=== PATIENT | female | born 1935 | race Caucasian/White ===

== ENCOUNTER 2018-07-08 15:07 | Emergency (ER) | payer MEDICARE ==
[~2018-07-08] VITALS: Ht 165.1 cm; Wt 83.6 kg
[~2018-07-08 15:07] MED LIST: ASPI1TAB15 PO; ATEN25TA PO; AVEL1TAB3 PO; CINN500C9 PO; CITA20TA4 PO; CO Q400C2 PO; COCO1000 PO; DULE100A INH; HYDR25TAB PO; MAGNCAP2 PO; METF500T13 PO; NYST50SS SS; OMEP20CA3 PO; PRAV40TA2 PO; PRED10TA PO; PRIL20TA2 PO; QUIN1TAB4 PO; SING10TA32 PO; VITA10002 PO; VITA1TAB23 PO; VITA200015 PO; XANA0.5T PO
[2018-07-08] MEDS ORDERED: NAPR-50 PO (16:13)
[2018-07-08] MEDS ORDERED: SOMA350T PO (16:23)
[2018-07-08 16:33] VITALS: BP 121/57
--- NOTE | 2018-07-08 18:04 | REP ---
CT LUMBAR SPINE WITHOUT CONTRAST: HISTORY: Fall. There is no disc bulge or herniation at the L1-2 level. The L1 nerves exit the neural foramina without compression. A diffuse disc bulge is present at the L2-3 level. There is hypertrophy of the ligamenta flava and posterior articulating facets. These findings produce mild central canal stenosis. The L2 nerves exit the neural foramina without compression. A diffuse disc bulge is present at the L3-4 level. There is hypertrophy of the ligamenta flava and posterior articulating facets. These findings produce moderate central canal stenosis. The L3 nerves exit the neural foramina without compression. A diffuse disc bulge is present at the L4-5 level. There is hypertrophy of the ligamenta flava and posterior articulating facets. These findings produce moderate central canal stenosis. The L4 nerves exit the neural foramina without compression. A diffuse disc bulge is present at the L5-S1 level. This abuts the thecal sac. There is hypertrophy of the posterior articulating facets. There are 3 mm of grade 1 spondylolisthesis of L5 on S1. This is associated with L5 Pars defects. The L5 nerves exit the neural foramina without compression. The L3-4 and L4-5 intervertebral discs are decreased in height consistent with disc degeneration There is an old compression fracture of the L4 vertebral body with minimal height loss. IMPRESSION:1. Mild central canal stenosis at the L2-3 level secondary to disc bulge, ligamentous and facet hypertrophy. 2. Moderate central canal stenosis at the L3-4 and L4-5 levels secondary to disc bulge, ligamentous and facet hypertrophy . 3. Diffuse disc bulge at the L5-S1 level. This abuts the thecal sac. There is grade 1 spondylolisthesis of L5 on S1 with associated L5 pars defects. 4. Old L4 compression fracture with minimal height loss. Electronically Signed by Abelardo Gaytan MD 07/11/2018 08:25 A
== END 2018-07-08 16:48 | disposition home or self-care (01) ==
LOC: M ED 15:07
DX: S39.012A Strain of muscle, fascia and tendon of lower back, initial encounter (principal); S30.0XXA Contusion of lower back and pelvis, initial encounter; W10.8XXA Fall (on) (from) other stairs and steps, initial encounter; Y92.89 Other specified places as the place of occurrence of the external cause; Y99.0 Civilian activity done for income or pay; E11.9 Type 2 diabetes mellitus without complications; I10 Essential (primary) hypertension; K21.9 Gastro-esophageal reflux disease without esophagitis; E78.00 Pure hypercholesterolemia, unspecified; I25.10 Atherosclerotic heart disease of native coronary artery without angina pectoris; Z79.899 Other long term (current) drug therapy; Z79.84 Long term (current) use of oral hypoglycemic drugs; Z79.82 Long term (current) use of aspirin; Z88.1 Allergy status to other antibiotic agents; Z88.2 Allergy status to sulfonamides; Z87.891 Personal history of nicotine dependence

== ENCOUNTER 2019-06-13 10:21 | Inpatient (IN) | payer MEDICARE ==
[~2019-06-13] VITALS: Ht 167.6 cm; Wt 83.9 kg
[~2019-06-13 10:21] MED LIST changes: -CITA20TA4 PO; +CITA20TA6 PO; +CYAN100049 PO; +HYDR-2541 PO; -HYDR25TAB PO; +NAPR-837 PO; +OMEP-172 PO; -OMEP20CA3 PO; +PRED-351 PO; -PRED10TA PO; +SOMA350T PO; -VITA10002 PO
[2019-06-13] MEDS ORDERED: ATOR1TAB21 PO (10:45)
[2019-06-13] MEDS ORDERED: NITR0.4S14 SL (10:45)
--- NOTE | 2019-06-13 11:05 | REP ---
CHEST, SINGLE VIEW: Single view of the chest is performed and compared to a prior study of 01/04/2016. Cardiac silhouette is mildly prominent. There is no evidence of acute infiltrate. There is calcification and tortuosity of the thoracic aorta. The mediastinal silhouette is unchanged. IMPRESSION: No acute infiltrate. Electronically Signed by Shakeel Bartlett MD 06/13/2019 04:04 P
--- NOTE | 2019-06-13 11:07 | REP ---
LEFT HIP, TWO VIEWS: Two views of the left hip performed. There is a nondisplaced fracture of the basicervical region of the proximal left femur. There is no angulation or displacement. There are mild degenerative changes at the left hip joint. IMPRESSION: Nondisplaced basicervical fracture proximal left femur. Electronically Signed by Shakeel Bartlett MD 06/13/2019 04:05 P
[2019-06-13 11:13] LABS: BASO # 0.1 10^3/uL (0.0-0.2); BASO % 0.3 % (0.0-1.0); EOS # 0.1 10^3/uL (0.0-0.5); EOS % 0.8 % (0.0-3.0); HEMATOCRIT 45.2 % (36.0-47.0); HEMOGLOBIN 14.2 g/dl (12.0-15.5); LYMPH # 1.8 10^3/uL (1.5-5.0); LYMPH % 9.7 % (24.0-44.0); MEAN CORPUSCULAR HEMOGLOBIN 30.5 pg (27.0-33.0); MEAN CORPUSCULAR HGB CONC 31.4 g/dl (32.0-36.5); MONO # 0.8 10^3/uL (0.0-0.8); MONO % 4.3 % (0.0-5.0); NEUTROPHILS # 15.6 10^3/uL (1.5-8.5); NEUTROPHILS % 83.3 % (36.0-66.0); PLATELET COUNT, AUTOMATED 234 10^3/uL (150-450); RED BLOOD COUNT 4.66 10^6/uL (4.00-5.40); WHITE BLOOD COUNT 18.7 10^3/uL (4.0-10.0)
[2019-06-13 11:28] LABS: INR 0.99; PROTHROMBIN TIME 12.8 SECONDS (11.8-14.0)
[2019-06-13 11:39] LABS: ALBUMIN 3.7 GM/DL (3.2-5.2); BILIRUBIN,TOTAL 0.5 MG/DL (0.2-1.0); CALCIUM LEVEL 9.9 MG/DL (8.8-10.2); CREATININE FOR GFR 0.95 MG/DL (0.55-1.30); GLOMERULAR FILTRATION RATE 59.7 (>32); POTASSIUM SERUM 3.7 MEQ/L (3.5-5.1); TOTAL PROTEIN 7.2 GM/DL (6.4-8.2)
[2019-06-13] MEDS ORDERED: MORPHINE 2 MG/ML 1ML VIAL (J2270) IV PRN ×2 (11:45→13:15)
[2019-06-13] MEDS ORDERED: ONDANSETRON 4MG/2ML VIAL (J2405) IV ONE (11:45)
[2019-06-13] MEDS ORDERED: XANA0.5T PO (12:03)
[2019-06-13] MEDS ORDERED: MAGN400C2 PO (12:03)
[2019-06-13] MEDS ORDERED: CINN500C15 PO (12:03)
[2019-06-13] MEDS ORDERED: HYDR25TAB PO (12:03)
[2019-06-13] MEDS ORDERED: hydrALAZINE INJ 20 MG/ML VIAL IV STA (12:16)
--- NOTE | 2019-06-13 12:36 | REP ---
CT LEFT HIP: CT left hip performed in the axial plane. Sagittal and coronal reconstruction images are performed. There is a nondisplaced fracture of the basicervical portion of the left femoral neck. This is not displaced and not angulated. No other fracture or dislocation is seen. There is moderate narrowing of the hip joint itself with subchondral sclerosis and spurring. Electronically Signed by Shakeel Bartlett MD 06/13/2019 04:22 P
--- NOTE | 2019-06-13 12:38 | REP ---
LEFT FEMUR: AP and lateral views of left femur are performed. There is a basicervical fracture of the left femoral neck which is nondisplaced and not angulated. There are moderate degenerative changes at the left hip joint. No other fracture or dislocation is seen. Electronically Signed by Shakeel Bartlett MD 06/13/2019 04:22 P
--- NOTE | 2019-06-13 12:38 | REP ---
PELVIS, SINGLE VIEW: Single AP view of the pelvis is performed. There is a nondisplaced fracture of the basicervical portion of the left femoral neck. No other acute fracture or dislocation is seen of the visualized osseous structures. There are moderate degenerative changes of the hips bilaterally. Electronically Signed by Shakeel Bartlett MD 06/13/2019 04:22 P
[2019-06-13] MEDS ORDERED: ALPRAZolam 0.5 MG TAB PO PRN (12:45)
[2019-06-13] MEDS ORDERED: NITROGLYCERIN 0.4 MG SUBL TABLET SL PRN ×2 (12:45→13:15)
--- NOTE | 2019-06-13 13:06 | HPEPDOC ---
[facility] Medical History & Physical Date of Admission Jun 13, 2019 Date of Service: Jun 13, 2019 Attending Physician: VENKAT YANES MD History and Physical CHIEF COMPLAINT: Fall HISTORY OF PRESENT ILLNESS: 83-year-old female with past medical history of coronary artery disease status post stent 1, COPD, obstructive sleep apnea, diabetes mellitus, CHF and hypertension, presents after slipping and falling while attempting to get out of her car. Patient reports moderate to severe left hip pain, imaging in the ED is consistent with nondisplaced intertrochanteric proximal left femur fracture. ED has discussed the case with Dr. Santos from orthopedic surgery who plans on taking her to the OR later today. Patient has no other complaints at this time, denies any chest pain, short of breath, nausea, vomiting, abdominal pain or diarrhea. At baseline, patient is able to ambulate at least one city block without getting shortness of breath, reports no difficulty with climbing a flight of stairs. She does report a history of CHF, last echocardiogram was 2 years ago, was valid by lace machine operator 6 months ago, without cardiac complaints. Patient's cardiac stent was placed nearly 10 years ago, no history of [place], currently at baseline. 10 point review of system is negative except for above PAST MEDICAL HISTORY: 1. Diabetes mellitus. 2. Coronary artery disease. 3. CHF. 4. Diabetes mellitus. 5. COPD 6. Obstructive sleep apnea. 7. Hypertension PAST SURGICAL HISTORY: 1. Coronary stent placement. SOCIAL HISTORY: Ex-smoker, 1+ pack per day for over 30 years, quit in 1985. Denies alcohol use. Denies drug use FAMILY HISTORY: Mother with heart disease Father with colon cancer ALLERGIES: Please see below. HOME MEDICATIONS: Please see below. PHYSICAL EXAMINATION: VITAL SIGNS: Please see below. GENERAL: No distress HEENT: Normocephalic, atraumatic, moist mucous membranes NECK: Supple CARDIOVASCULAR EXAMINATION: S1, S2, no murmurs RESPIRATORY EXAMINATION: Clear to auscultation, no wheezing ABDOMINAL EXAMINATION: Soft, nontender, nondistended, positive bowel sounds EXTREMITIES: Range of motion limited due to pain, left hip with moderate tenderness to palpation SKIN: No rash NEUROLOGICAL EXAMINATION: Alert and oriented 3, no focal deficits PSYCHIATRIC EXAMINATION: Calm and cooperative LABORATORY DATA: See below. IMAGING: X-rays and CT scan consistent with nondisplaced intertrochanteric left femur fracture MICROBIOLOGY: Please see below. ASSESSMENT: 83-year-old female with an extensive medical history, presents to the emergency department with left femur fracture after sustaining a fall while attempting to get out of her car. PLAN: 1. Nondisplaced intertrochanteric proximal left femur fracture. Orthopedic evaluation pending, tentatively planned for later today. Revised cardiac risk index score of 1, patient is at moderate risk for complications from this moderate risk procedure. Discussed the risks and benefits along with possible complications with the patient and family at bedside, all questions answered. Patient is willing to accept this risk and wishes to undergo surgery at this time. We'll get post op EKG, NT proBNP pending, will trend troponins daily for 3 days postop. Pain control, bed rest for now, nothing by mouth, hold off on DVT prophylaxis until after surgery. 2. Coronary artery disease. Status post stent 1, stable, continue optimal medical management. 3. CHF. Stable, reportedly her last echocardiogram was 2 years ago, continue medical management. 4. COPD Stable, does not require home oxygen, continue home meds. 5. Obstructive sleep apnea. Continue CPAP with home settings. 6. Diabetes mellitus. Hold metformin, sliding scale insulin before meals and at bedtime. 7. Hypertension. Continue home meds DVT prophylaxis: Heparin subcutaneous GI prophylaxis: Home PPI Vital Signs Vital Signs Date Time Temp Pulse Resp B/P (MAP) Pulse Ox O2 Delivery O2 Flow Rate FiO2 06/13/19 12:30 70 165/73 (103) 97 Nasal Cannula 4.0 06/13/19 11:55 18 06/13/19 10:31 96.3 Laboratory Data Labs 24H Laboratory Tests 2 06/13/19 11:04: Immature Granulocyte % (Auto) 1.6, Neutrophils (%) (Auto) 83.3H, Lymphocytes (%) (Auto) 9.7L, Monocytes (%) (Auto) 4.3, Eosinophils (%) (Auto) 0.8, Basophils (%) (Auto) 0.3, Neutrophils # (Auto) 15.6H, Lymphocytes # (Auto) 1.8, Monocytes # (Auto) 0.8, Eosinophils # (Auto) 0.1, Basophils # (Auto) 0.1, Nucleated Red Blood Cells % (auto) 0.0, Prothrombin Time 12.8, Prothromb Time International Ratio 0.99, Anion Gap 9, Glomerular Filtration Rate 59.7, Calcium Level 9.9, Total Bilirubin 0.5, Aspartate Amino Transf (AST/SGOT) 22, Alanine Aminotransferase (ALT/SGPT) 24, Alkaline Phosphatase 83, Total Protein 7.2, Albumin 3.7, Albumin/Globulin Ratio 1.06 CBC/BMP Laboratory Tests 06/13/19 11:04 Home Medications Scheduled Ascorbic Acid (Vitamin C) 250 Mg Tab, 250 MG PO DAILY Aspirin (Aspirin EC) 81 Mg Tab, 81 MG PO DAILY Atorvastatin Calcium (Atorvastatin Calcium) 20 Mg Tablet, 20 MG PO QHS Cholecalciferol (Vitamin D3) (Vitamin D3) 2,000 Unit Tab, 2,000 UNIT PO DAILY Cinnamon Bark (Cinnamon) 500 Mg Capsule, 500 MG PO DAILY Citalopram Hydrobromide (Citalopram HBr) 20 Mg Tab, 20 MG PO DAILY Cyanocobalamin (Vitamin B-12) (Vitamin B-12) 1,000 Mcg Tab, 1,000 MCG PO DAILY Hydrochlorothiazide (Hydrochlorothiazide) 25 Mg Tablet, 25 MG PO DAILY Magnesium Oxide (Magnesium) 400 Mg Capsule, 400 MG PO DAILY Metformin HCl (Metformin HCl) 500 Mg Tab, 500 MG PO BID Mometasone/Formoterol (Dulera 100 Mcg/5 Mcg Inhaler) 1 Aer Aer, 1 PUFF INH BID Montelukast Sodium (Singulair) 10 Mg Tab, 10 MG PO QHS Omeprazole (Omeprazole) 20 Mg Cap, 20 MG PO DAILY Quinapril Hcl (Quinapril HCl) 40 Mg Tab, 40 MG PO DAILY Ubidecarenone (Co Q-10) 400 Mg Cap, 400 MG PO DAILY Scheduled PRN Alprazolam (Xanax) 0.5 Mg Tablet, 0.5 MG PO QID PRN for ANXIETY Nitroglycerin (Nitroglycerin) 0.4 Mg Tab.subl, 0.4 MG SL NITRO PRN for CHEST PAIN Allergies Coded Allergies: Sulfa (Sulfonamide Antibiotics) (Verified Allergy, Intermediate, RASH, SWELLING, 06/13/19) A-FIB/CHADSVASC A-FIB History Current/History of A-Fib/PAF?: No VENKAT YANES MD Jun 13, 2019 13:06
[2019-06-13] MEDS ORDERED: GLUCAGON FOR INJ 1 MG VIAL (J1610) SC PRN (13:15)
[2019-06-13] MEDS ORDERED: GLUCOSE 4 GM CHEW TABLET PO PRN (13:15)
[2019-06-13] MEDS ORDERED: DEXTROSE 50% 50 ML SYRINGE IV PRN (13:15)
[2019-06-13] MEDS: PERCOCET 5MG/325MG TAB PO PRN ×2 (14:19→20:41)
[2019-06-13 15:00] VITALS: BP 130/59
[2019-06-13] MEDS ORDERED: HEPARIN SOD (PORCINE) 5000 UNITS/ML VIAL SQ ONE (17:15)
[2019-06-13] MEDS: HumaLOG INSULIN (NovoLOG) PER UNIT SC SCH ×2 (18:03→20:39)
--- NOTE | 2019-06-13 18:35 | CR ---
DATE OF CONSULTATION: 06/13/2019 CHIEF COMPLAINT: Left hip pain. Patient states that today she was walking at home, where she had a slip and fall. Immediately appreciated left hip pain. She was unable to bear weight. The pain was made worsening through mobilization, improved only with bedrest and pain medication. She has a complex past medical history of coronary artery disease, status post stent, chronic obstructive pulmonary disease (COPD), obstructive sleep apnea (TIFF), diabetes, congestive heart failure (CHF), and hypertension. She says the pain is sharp and severe to the left hip. Denies any pain elsewhere. Denies any numbness, tingling, fevers, chills, nausea, or vomiting. A complete 10-system review with significant for pertinent and positive and negatives in history of present illness (HPI). All other systems negative. PAST MEDICAL HISTORY: 1. Diabetes. 2. Coronary artery disease. 3. CHF. 4/ Diabetes. 5. COPD. 6. TIFF. 7. Hypertension. PAST SURGICAL HISTORY: Coronary stent placement. SOCIAL HISTORY: Ex-smoker, one pack a day for 30 years. Quit in 1995. Denies alcohol and drug use. HOME MEDICATIONS: Aspirin, atorvastatin, citalopram, hydrochlorothiazide, metformin, montelukast, omeprazole, quinapril, ALLERGIES: SULFA DRUGS, rash and swelling. PHYSICAL EXAMINATION: Patient is awake, alert, oriented, well dressed, appropriate affect. Breathing unlabored on room air. Normocephalic, atraumatic. Bilateral lower extremities: No tenderness to palpation. Full, active range of motion of the shoulders, elbows, and wrists. Denied pain or discomfort. Skin intact. Radial pulse 2+, regular rate. Sensation intact to light touch in superficial sensory branch, radial nerve, medial nerve, and ulnar nerve. Positive anterior interosseous nerve (AIN) and posterior interosseous nerve (PIN), ulnar motor nerve function. Right lower extremity: No tenderness to palpation. Full, active range of motion over the hip, knee, and foot without any pain or discomfort. Positive extensor hallucis longus (EHL), flexor hallucis longus (FHL), tibialis anterior, gastroc motor function. Sensation intact to light touch in superficial peroneal, deep peroneal, sural, saphenous, tibial distributions. Posterior tibial pulse 2+, regular rate. Skin is intact. Left hip: Positive log roll. Tender to palpation about the hip. No tenderness to palpation about the knee, ankle, or toes. Positive EHL, FHL, tibialis anterior, and gastroc motor function. Skin is intact. Posterior tibial pulse 2+, regular rate. Sensation intact to light touch in superficial peroneal, deep peroneal, sural, saphenous, tibial distributions. X-rays of the pelvis, left hip, and femur, and CT scan of the left hip were reviewed, demonstrating a nondisplaced left intertrochanteric hip fracture. DIAGNOSES: Left intertrochanteric hip fracture. I discussed with the patient and her family today that, while this is good that the fracture is not displaced, in order for her to mobilize, we do need to fix it in order to lock it in place to encourage healing and also further block it from displacement. It would also increase her mobilization. Patient expressed understanding and agreed with this plan. We discussed and obtained consent. We discussed risks, including, but not limited to, infection, damage to surrounding structures, malunion, nonunion, incomplete relief. The patient wished to proceed. In the meantime, the patient will be on bedrest, nothing by mouth after midnight for a planned surgery tomorrow around noon. We appreciate medicine admitting and doing a medical clearance for this patient in the meantime.
[2019-06-13 20:00] VITALS: BP 120/56
[2019-06-13] MEDS: ATORVASTATIN 20 MG TAB PO SCH (20:38)
[2019-06-13] MEDS: MONTELUKAST 10 MG TAB PO SCH (20:38)
[2019-06-13] MEDS: HEPARIN SOD (PORCINE) 5000 UNITS/ML VIAL SQ SCH ×2 (20:39→21:32)
[2019-06-14] VITALS (10 sets, daily range): BP systolic 109–142; BP diastolic 52–82
[2019-06-14] MEDS: PERCOCET 5MG/325MG TAB PO PRN ×3 (02:55→18:52)
[2019-06-14] MEDS ORDERED: ceFAZolin SOD 2 GM in IV 1 EA IV ONE (06:00)
[2019-06-14 06:35] LABS: HEMATOCRIT 40.7 % (36.0-47.0); HEMOGLOBIN 12.5 g/dl (12.0-15.5); MEAN CORPUSCULAR HEMOGLOBIN 30.7 pg (27.0-33.0); MEAN CORPUSCULAR HGB CONC 30.7 g/dl (32.0-36.5); PLATELET COUNT, AUTOMATED 230 10^3/uL (150-450); RED BLOOD COUNT 4.07 10^6/uL (4.00-5.40); WHITE BLOOD COUNT 13.8 10^3/uL (4.0-10.0)
[2019-06-14 07:01] LABS: ALT/SGPT 16 U/L (12-78); BILIRUBIN,TOTAL 0.6 MG/DL (0.2-1.0); BLOOD UREA NITROGEN 27 MG/DL (7-18); CARBON DIOXIDE LEVEL 29 MEQ/L (21-32); CHLORIDE LEVEL 107 MEQ/L (98-107); CREATININE FOR GFR 1.07 MG/DL (0.55-1.30); GLUCOSE, FASTING 121 MG/DL (70-100); MAGNESIUM LEVEL 2.1 MG/DL (1.8-2.4); POTASSIUM SERUM 3.7 MEQ/L (3.5-5.1); SODIUM LEVEL 142 MEQ/L (136-145); TOTAL PROTEIN 6.6 GM/DL (6.4-8.2); TROPONIN I < 0.02 NG/ML (< 0.10)
[2019-06-14] MEDS: HumaLOG INSULIN (NovoLOG) PER UNIT SC SCH ×4 (07:30→20:49)
--- NOTE | 2019-06-14 08:01 | ECGEPIP ---
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 : 1935 Requested By: Dunia Boston Order Number: [id number] Reading MD: Dunia Boston Measurements Intervals [place] Rate: 66 P: 76 NV: 196 QRS: 17 QRSD: 98 T: 55 QT: 390 QTc: 410 Interpretive Statements SINUS RHYTHM NONSPECIFIC ST & T-WAVE ABNORMALITY DECREASAED RATE 01/04/16 Electronically Signed on 06-14-2019 8:00:54 EST by Dunia Boston
[2019-06-14] MEDS ORDERED: ASPIRIN 81 MG ENTERIC TAB PO SCH (09:00)
[2019-06-14] MEDS: QUINAPRIL 20 MG TAB PO SCH (09:00)
[2019-06-14] MEDS: CitaloPRAM (CeleXA) 20 MG TAB PO SCH (09:00)
[2019-06-14] MEDS: VITAMIN D 1,000 INTERNATIONAL UNITS TABLET PO SCH (09:00)
[2019-06-14] MEDS: ASCORBIC ACID 250 MG TAB PO SCH (09:00)
[2019-06-14] MEDS: hydroCHLOROthiazide 25 MG TAB PO SCH (09:00)
[2019-06-14] MEDS ORDERED: HEPARIN SOD (PORCINE) 5000 UNITS/ML VIAL SC SCH (09:00)
[2019-06-14] MEDS: OMEPRAZOLE 20 MG CAP PO SCH (09:00)
[2019-06-14] MEDS: CYANOCOBALAMIN 500 MCG TAB PO SCH (09:00)
[2019-06-14] MEDS ORDERED: LIDOCAINE 2% INJ 100 MG/5 ML SDV (FOR ANES.) As Ordered ONE (11:47)
[2019-06-14] MEDS ORDERED: fentaNYL 100 MCG/2 ML INJECTION (J3010) As Ordered ONE (11:47)
[2019-06-14] MEDS ORDERED: PROPOFOL 200 MG/20 ML VIAL As Ordered ONE (11:47)
[2019-06-14] MEDS ORDERED: ceFAZolin 2 GM/D5W 50 ML IV BAG (J0690 PER 500MG) As Ordered ONE (11:57)
[2019-06-14] MEDS ORDERED: MIDAZOLAM INJ 2 MG/2 ML VIAL (J2250) As Ordered ONE (12:10)
[2019-06-14] MEDS ORDERED: KETAMINE HCL 200 MG/20 ML VIAL As Ordered ONE (12:10)
[2019-06-14] MEDS ORDERED: PHENYLephrine HCL 500 MCG/5 ML (100MCG/ML) SYRINGE (J2370) As Ordered ONE (12:36)
[2019-06-14] MEDS ORDERED: ePHEDrine SULFATE 25 MG/5 ML(5MG/ML) SYRINGE As Ordered ONE (12:54)
[2019-06-14] MEDS ORDERED: ONDANSETRON 4MG/2ML VIAL (J2405) IV PRN (13:45)
[2019-06-14] MEDS ORDERED: PERCOCET 5MG/325MG TAB PO PRN (13:45)
[2019-06-14] MEDS ORDERED: LR 1,000 ML IV SCH (13:45)
[2019-06-14] MEDS ORDERED: HYDROMORPHONE HCL 0.5 MG/ 0.5 ML SYRINGE (J1170 PER 1) IV PRN (13:45)
[2019-06-14] MEDS ORDERED: fentaNYL 100 MCG/2 ML INJECTION (J3010) IV PRN (13:45)
[2019-06-14] MEDS: LR 1,000 ML IV SCH ×2 (15:51→20:48)
--- NOTE | 2019-06-14 19:20 | IPNPDOC ---
Date Seen The patient was seen on 06/14/19. Progress Note HISTORY OF PRESENT ILLNESS: 83-year-old female with past medical history of coronary artery disease status post stent 1, COPD, obstructive sleep apnea, diabetes mellitus, CHF and hypertension, presents after slipping and falling while attempting to get out of her car. Patient reports moderate to severe left hip pain, imaging in the ED is consistent with nondisplaced intertrochanteric proximal left femur fracture. ED has discussed the case with Dr. Santos from orthopedic surgery who plans on taking her to the OR later today. Patient has no other complaints at this time, denies any chest pain, short of breath, nausea, vomiting, abdominal pain or diarrhea. At baseline, patient is able to ambulate at least one city block without getting shortness of breath, reports no difficulty with climbing a flight of stairs. She does report a history of CHF, last echocardiogram was 2 years ago, was valid by art editor 6 months ago, without cardiac complaints. Patient's cardiac stent was placed nearly 10 years ago, no history of [place], currently at baseline. 06/14/19 No new complaints, pain is well controlled, scheduled for OR later today. She denies any SOB, CP, N/V, abdominal pain or diarrhea. 10 point review of system is negative except for above PHYSICAL EXAMINATION: VITAL SIGNS: Please see below. GENERAL: No distress HEENT: Normocephalic, atraumatic, moist mucous membranes NECK: Supple CARDIOVASCULAR EXAMINATION: S1, S2, no murmurs RESPIRATORY EXAMINATION: Clear to auscultation, no wheezing ABDOMINAL EXAMINATION: Soft, nontender, nondistended, positive bowel sounds EXTREMITIES: Range of motion limited due to pain, left hip with moderate tenderness to palpation SKIN: No rash NEUROLOGICAL EXAMINATION: Alert and oriented 3, no focal deficits PSYCHIATRIC EXAMINATION: Calm and cooperative LABORATORY DATA: See below. IMAGING: X-rays and CT scan consistent with nondisplaced intertrochanteric left femur fracture MICROBIOLOGY: Please see below. ASSESSMENT: 83-year-old female with an extensive medical history, presents to the emergency department with left femur fracture after sustaining a fall while attempting to get out of her car. PLAN: 1. Nondisplaced intertrochanteric proximal left femur fracture. Scheduled for surgery later today, NPO, risks & benefits of procedure discussed w/ patient & family, all questions answered. 2. Coronary artery disease. Status post stent 1, stable, continue optimal medical management. 3. CHF. Stable, reportedly her last echocardiogram was 2 years ago, continue medical management. 4. COPD Stable, continue home meds. 5. Obstructive sleep apnea. Continue CPAP with home settings. 6. Diabetes mellitus. Hold metformin, sliding scale insulin before meals and at bedtime. 7. Hypertension. Continue home meds DVT prophylaxis: Heparin subcutaneous GI prophylaxis: Home PPI VS, I&O, 24H, Fishbone Vital Signs/I&O Vital Signs Date Time Temp Pulse Resp B/P (MAP) Pulse Ox O2 Delivery O2 Flow Rate FiO2 06/14/19 18:53 97.0 81 18 118/70 (86) 93 Nasal Cannula 1.0 I&O- Last 24 Hours up to 6 AM 06/14/19 06:00 Intake Total 236 ml Output Total 400 ml Balance -164 ml Laboratory Data 24H LABS Laboratory Tests 2 06/13/19 20:16: Bedside Glucose (Misc Panel) 152H 06/14/19 06:03: Nucleated Red Blood Cells % (auto) 0.0, Anion Gap 6L, Glomerular Filtration Rate 52.0, Calcium Level 9.0, Magnesium Level 2.1, Total Bilirubin 0.6, Aspartate Amino Transf (AST/SGOT) 17, Alanine Aminotransferase (ALT/SGPT) 16, Alkaline Phosphatase 62, Troponin I < 0.02, Total Protein 6.6, Albumin 3.0L, Albumin/Globulin Ratio 0.83L 06/14/19 11:41: Bedside Glucose (Misc Panel) 121H 06/14/19 13:35: Bedside Glucose (Misc Panel) 118H 06/14/19 16:28: Bedside Glucose (Misc Panel) 103 CBC/BMP Laboratory Tests 06/14/19 06:03 VENKAT YANES MD Jun 14, 2019 19:19
[2019-06-14] MEDS: ATORVASTATIN 20 MG TAB PO SCH (20:48)
[2019-06-14] MEDS: MONTELUKAST 10 MG TAB PO SCH (20:48)
[2019-06-15] MEDS: ceFAZolin SOD 1 GM in D5W MINI-BAG PLUS 50 ML IV SCH ×3 (01:30→16:24)
[2019-06-15 02:00] VITALS: BP 138/67
[2019-06-15] MEDS: PERCOCET 5MG/325MG TAB PO PRN ×2 (02:04→10:53)
[2019-06-15 05:07] LABS: HEMATOCRIT 34.6 % (36.0-47.0); HEMOGLOBIN 10.8 g/dl (12.0-15.5); MEAN CORPUSCULAR HEMOGLOBIN 30.9 pg (27.0-33.0); MEAN CORPUSCULAR HGB CONC 31.2 g/dl (32.0-36.5); MEAN CORPUSCULAR VOLUME 99.1 fl (80.0-96.0); RED BLOOD COUNT 3.49 10^6/uL (4.00-5.40); WHITE BLOOD COUNT 14.5 10^3/uL (4.0-10.0)
[2019-06-15 05:08] LABS: PLATELET COUNT, AUTOMATED 171 10^3/uL (150-450)
[2019-06-15 05:26] LABS: BLOOD UREA NITROGEN 23 MG/DL (7-18); GLUCOSE, FASTING 122 MG/DL (70-100)
[2019-06-15 05:27] LABS: CARBON DIOXIDE LEVEL 32 MEQ/L (21-32); CHLORIDE LEVEL 107 MEQ/L (98-107); GLOMERULAR FILTRATION RATE > 60.0 (>32); POTASSIUM SERUM 3.7 MEQ/L (3.5-5.1); SODIUM LEVEL 141 MEQ/L (136-145)
[2019-06-15 05:28] LABS: CALCIUM LEVEL 8.4 MG/DL (8.8-10.2)
[2019-06-15 05:29] LABS: TROPONIN I < 0.02 NG/ML (< 0.10)
[2019-06-15 08:00] VITALS: BP 124/62
[2019-06-15] MEDS ORDERED: POTASSIUM CHLORIDE 10 MEQ SR TABLET PO ONE (08:15)
--- NOTE | 2019-06-15 08:18 | REP ---
Left femur: Three views. History: Left hip fracture. 102 seconds of fluoroscopy time is reported. Findings: A sequence of three last image hold fluoroscopically obtained spot radiographs of the left hip document open direction internal fixation of left femoral neck fracture. Electronically Signed by Ky Reich MD 06/15/2019 08:09 A
[2019-06-15] MEDS: MOM 30ML SUSPENSION UDC PO SCH (08:36)
[2019-06-15] MEDS: MIRALAX *UNIT DOSE* 17GM PACKET PO SCH (08:36)
[2019-06-15] MEDS: SENOKOT S TAB PO SCH ×2 (08:36→20:46)
[2019-06-15] MEDS: LR 1,000 ML IV SCH (08:36)
[2019-06-15] MEDS: hydroCHLOROthiazide 25 MG TAB PO SCH (08:37)
[2019-06-15] MEDS: OMEPRAZOLE 20 MG CAP PO SCH (08:37)
[2019-06-15] MEDS: CitaloPRAM (CeleXA) 20 MG TAB PO SCH (08:37)
[2019-06-15] MEDS: ASCORBIC ACID 250 MG TAB PO SCH (08:37)
[2019-06-15] MEDS: CYANOCOBALAMIN 500 MCG TAB PO SCH (08:37)
[2019-06-15] MEDS: VITAMIN D 1,000 INTERNATIONAL UNITS TABLET PO SCH (08:38)
[2019-06-15] MEDS: QUINAPRIL 20 MG TAB PO SCH (08:38)
[2019-06-15] MEDS: HumaLOG INSULIN (NovoLOG) PER UNIT SC SCH ×4 (09:37→20:48)
--- NOTE | 2019-06-15 13:37 | RO ---
DATE OF PROCEDURE: 06/14/2019 PREPROCEDURE DIAGNOSIS: Left intertrochanteric hip fracture. POSTPROCEDURE DIAGNOSIS: Left intertrochanteric hip fracture. PROCEDURE: Left femoral rodding. SURGEON: Dr. Eamon Santos HEAD OF TRAINING AND DEVELOPMENT: None. ANESTHESIA: Spinal. PREOPERATIVE ANTIBIOTICS: 2 grams of Ancef. COMPLICATIONS: None. Estimated blood loss 200 mL INDICATION: This is an 83-year-old female who had a slip and fall and suffered a left hip fracture. We discussed in order to manage her pain and also increase her mobilization, this required operative intervention. Patient expressed understanding and agreement with the risks including but not limited to infection, damage to other surrounding structures, malunion, nonunion, incomplete relief and wished to proceed. DESCRIPTION OF PROCEDURE: Patient was brought to the operating room supine position. Underwent spinal anesthesia at which point she was moved over to the fracture table. We then had a time-out completing type of planned surgery. We took we took films AP and lateral to establish correct reduction of intertrochanteric hip fracture with retraction and adduction. Once this was done, we prepped the left hip in the usual fashion. We had a time out confirmed site, side and surgery. We then made a longitudinal incision proximal to the trochanter using a drill-tipped Guidewire to establish our start point confirmed on AP and lateral. We then inserted the entry reamer. Then we passed the Guidewire all the way down. We measured a 300 mm nail, 125-degree angle. We then sequentially reamed to 12.5. We used a size 11 nail. We inserted the nail down past the fracture to the distal femur. We then made removed the Guidewire. At this point, we used the AP and lateral and confirmed placement for the Guidewire for the helical blade up into the femoral head. We were happy with this positioning. We measured a 100. Then we drilled over top of the guidewire and then inserted the helical blade. We then used the compression function of the TFNA to compress the fracture. Once we were happy with this, we locked it in place. We then removed the Guidewire and turned out attention to the distal cross-lock. We found the combination the combination whole and used perfect [place] [employer], and placed it in static positioning. At this point, we confirmed final reduction, hardware fixation after removal of the jig on both AP and lateral. We were happy with this and irrigated out the wounds thoroughly and closed with #2-0 Vicryl and barry, placed a dressing of gauze and Tegaderm overtop. The patient was taken safely off the fracture table onto the bed at which point she was taken to the postanesthesia care unit (PACU) in stable condition. POSTOPERATIVE PLAN: Patient will be weightbearing as tolerated, surgical care improvement project (SCIP) antibiotic prophylaxis, be started on deep vein thrombosis (DVT) prophylaxis, and will work on mobilization, MTDD
[2019-06-15 14:00] VITALS: BP 112/46
--- NOTE | 2019-06-15 18:24 | IPNPDOC ---
Date Seen The patient was seen on 06/15/19. Progress Note HISTORY OF PRESENT ILLNESS: 83-year-old female with past medical history of coronary artery disease status post stent 1, COPD, obstructive sleep apnea, diabetes mellitus, CHF and hypertension, presents after slipping and falling while attempting to get out of her car. Patient reports moderate to severe left hip pain, imaging in the ED is consistent with nondisplaced intertrochanteric proximal left femur fracture. ED has discussed the case with Dr. Santos from orthopedic surgery who plans on taking her to the OR later today. Patient has no other complaints at this time, denies any chest pain, short of breath, nausea, vomiting, abdominal pain or diarrhea. At baseline, patient is able to ambulate at least one city block without getting shortness of breath, reports no difficulty with climbing a flight of stairs. She does report a history of CHF, last echocardiogram was 2 years ago, was valid by civil engineering specialist 6 months ago, without cardiac complaints. Patient's cardiac stent was placed nearly 10 years ago, no history of [place], currently at baseline. 06/14/19 No new complaints, pain is well controlled, scheduled for OR later today. She denies any SOB, CP, N/V, abdominal pain or diarrhea. 06/15/19 Underwent femoral rodding for L hip intertrochanteric fracture yesterday, reports hip pain moderately controlled on current regimen, without additional complaints. She denies any SOB, CP, nausea, vomiting, abdominal pain or diarrhea. 10 point review of system is negative except for above PHYSICAL EXAMINATION: VITAL SIGNS: Please see below. GENERAL: No distress HEENT: Normocephalic, atraumatic, moist mucous membranes NECK: Supple CARDIOVASCULAR EXAMINATION: S1, S2, no murmurs RESPIRATORY EXAMINATION: Clear to auscultation, no wheezing ABDOMINAL EXAMINATION: Soft, nontender, nondistended, positive bowel sounds EXTREMITIES: Range of motion limited due to pain, left hip with moderate tenderness to palpation SKIN: No rash NEUROLOGICAL EXAMINATION: Alert and oriented 3, no focal deficits PSYCHIATRIC EXAMINATION: Calm and cooperative LABORATORY DATA: See below. IMAGING: X-rays and CT scan consistent with nondisplaced intertrochanteric left femur fracture MICROBIOLOGY: Please see below. ASSESSMENT: 83-year-old female with an extensive medical history, presents to the emergency department with left femur fracture after sustaining a fall while attempting to get out of her car. PLAN: 1. Nondisplaced intertrochanteric proximal left femur fracture. s/p femoral rodding yesterday, POD #1, pain well controlled, PT eval, VTE prophylaxis with Xarelto, further recommendations as per orthopedic surgery 2. Coronary artery disease. Status post stent 1, stable, continue optimal medical management. 3. CHF. Stable, reportedly her last echocardiogram was 2 years ago, continue medical management. 4. COPD Stable, continue home meds. 5. Obstructive sleep apnea. Continue CPAP with home settings. 6. Diabetes mellitus. Hold metformin, sliding scale insulin before meals and at bedtime. 7. Hypertension. Continue home meds DVT prophylaxis: Xarelto GI prophylaxis: Home PPI VS, I&O, 24H, Fishbone Vital Signs/I&O Vital Signs Date Time Temp Pulse Resp B/P (MAP) Pulse Ox O2 Delivery O2 Flow Rate FiO2 06/15/19 14:00 98.2 73 18 112/46 (68) 93 Nasal Cannula 1.0 I&O- Last 24 Hours up to 6 AM 06/15/19 06:00 Intake Total 1675 ml Output Total 765 ml Balance 910 ml Laboratory Data 24H LABS Laboratory Tests 2 06/14/19 20:44: Bedside Glucose (Misc Panel) 158H 06/15/19 04:51: Nucleated Red Blood Cells % (auto) 0.0, Anion Gap 3L, Glomerular Filtration Rate > 60.0, Calcium Level 8.4L, Troponin I < 0.02 06/15/19 12:42: Bedside Glucose (Misc Panel) 105 06/15/19 17:17: Bedside Glucose (Misc Panel) 115H CBC/BMP Laboratory Tests 06/15/19 04:51 VENKAT YANES MD Jun 15, 2019 18:24
[2019-06-15] MEDS: RIVAROXABAN 10 MG TAB (XARELTO) PO SCH (19:00)
[2019-06-15] MEDS: MONTELUKAST 10 MG TAB PO SCH (20:46)
[2019-06-15] MEDS: ATORVASTATIN 20 MG TAB PO SCH (20:46)
[2019-06-15 22:00] VITALS: BP 110/60
[2019-06-16] MEDS: PERCOCET 5MG/325MG TAB PO PRN ×2 (00:40→12:40)
[2019-06-16 06:00] VITALS: BP 137/63
[2019-06-16 06:08] LABS: HEMATOCRIT 34.5 % (36.0-47.0); HEMOGLOBIN 10.8 g/dl (12.0-15.5); MEAN CORPUSCULAR HGB CONC 31.3 g/dl (32.0-36.5); MEAN CORPUSCULAR VOLUME 99.1 fl (80.0-96.0); PLATELET COUNT, AUTOMATED 169 10^3/uL (150-450); RED BLOOD COUNT 3.48 10^6/uL (4.00-5.40); WHITE BLOOD COUNT 12.1 10^3/uL (4.0-10.0)
[2019-06-16 06:36] LABS: BLOOD UREA NITROGEN 21 MG/DL (7-18); CALCIUM LEVEL 8.2 MG/DL (8.8-10.2); CARBON DIOXIDE LEVEL 31 MEQ/L (21-32); CHLORIDE LEVEL 103 MEQ/L (98-107); GLOMERULAR FILTRATION RATE > 60.0 (>32); GLUCOSE, FASTING 113 MG/DL (70-100); MAGNESIUM LEVEL 2.1 MG/DL (1.8-2.4); PHOSPHORUS LEVEL 2.1 MG/DL (2.5-4.9); POTASSIUM SERUM 4.1 MEQ/L (3.5-5.1); SODIUM LEVEL 140 MEQ/L (136-145); TROPONIN I < 0.02 NG/ML (< 0.10)
[2019-06-16] MEDS: MIRALAX *UNIT DOSE* 17GM PACKET PO SCH (07:55)
[2019-06-16] MEDS: MOM 30ML SUSPENSION UDC PO SCH (07:55)
[2019-06-16] MEDS: HumaLOG INSULIN (NovoLOG) PER UNIT SC SCH ×4 (07:56→20:38)
[2019-06-16] MEDS: SENOKOT S TAB PO SCH ×2 (07:57→20:41)
[2019-06-16] MEDS: OMEPRAZOLE 20 MG CAP PO SCH (07:57)
[2019-06-16] MEDS: CitaloPRAM (CeleXA) 20 MG TAB PO SCH (07:57)
[2019-06-16] MEDS: CYANOCOBALAMIN 500 MCG TAB PO SCH (07:57)
[2019-06-16] MEDS: hydroCHLOROthiazide 25 MG TAB PO SCH (07:57)
[2019-06-16] MEDS: QUINAPRIL 20 MG TAB PO SCH (07:57)
[2019-06-16] MEDS: VITAMIN D 1,000 INTERNATIONAL UNITS TABLET PO SCH (07:58)
[2019-06-16] MEDS: K-PHOS NEUTRAL 250MG TABLET (SOD.PHOSPHATE/POT.PHOSPHATE) PO SCH ×3 (10:05→20:41)
[2019-06-16] MEDS: ASCORBIC ACID 250 MG TAB PO SCH (10:05)
[2019-06-16 14:00] VITALS: BP 130/60
--- NOTE | 2019-06-16 15:30 | IPNPDOC ---
Date Seen The patient was seen on 06/16/19. Progress Note HISTORY OF PRESENT ILLNESS: 83-year-old female with past medical history of coronary artery disease status post stent 1, COPD, obstructive sleep apnea, diabetes mellitus, CHF and hypertension, presents after slipping and falling while attempting to get out of her car. Patient reports moderate to severe left hip pain, imaging in the ED is consistent with nondisplaced intertrochanteric proximal left femur fracture. ED has discussed the case with Dr. Santos from orthopedic surgery who plans on taking her to the OR later today. Patient has no other complaints at this time, denies any chest pain, short of breath, nausea, vomiting, abdominal pain or diarrhea. At baseline, patient is able to ambulate at least one city block without getting shortness of breath, reports no difficulty with climbing a flight of stairs. She does report a history of CHF, last echocardiogram was 2 years ago, was valid by sales and in home delivery specialist 6 months ago, without cardiac complaints. Patient's cardiac stent was placed nearly 10 years ago, no history of [place], currently at baseline. 06/14/19 No new complaints, pain is well controlled, scheduled for OR later today. She denies any SOB, CP, N/V, abdominal pain or diarrhea. 06/15/19 Underwent femoral rodding for L hip intertrochanteric fracture yesterday, reports hip pain moderately controlled on current regimen, without additional complaints. She denies any SOB, CP, nausea, vomiting, abdominal pain or diarrhea. 06/16/19 Patient comfortable in chair, reports improvement in hip pain and increased mobility with PT, tolerating diet, without complaints, will require rehab prior to returning home. 10 point review of system is negative except for above PHYSICAL EXAMINATION: VITAL SIGNS: Please see below. GENERAL: No distress HEENT: Normocephalic, atraumatic, moist mucous membranes NECK: Supple CARDIOVASCULAR EXAMINATION: S1, S2, no murmurs RESPIRATORY EXAMINATION: Clear to auscultation, no wheezing ABDOMINAL EXAMINATION: Soft, nontender, nondistended, positive bowel sounds EXTREMITIES: Range of motion intact SKIN: No rash NEUROLOGICAL EXAMINATION: Alert and oriented 3, no focal deficits PSYCHIATRIC EXAMINATION: Calm and cooperative LABORATORY DATA: See below. IMAGING: X-rays and CT scan consistent with nondisplaced intertrochanteric left femur fracture MICROBIOLOGY: Please see below. ASSESSMENT: 83-year-old female with an extensive medical history, presents to the emergency department with left femur fracture after sustaining a fall while attempting to get out of her car. PLAN: 1. Nondisplaced intertrochanteric proximal left femur fracture. s/p femoral rodding, POD #2, pain well controlled, PT eval appreciated, VTE prophylaxis with Xarelto, awaiting rehab placement. 2. Coronary artery disease. Status post stent 1, stable, continue optimal medical management. 3. CHF. Stable, reportedly her last echocardiogram was 2 years ago, continue medical management. 4. COPD Stable, continue home meds. 5. Obstructive sleep apnea. Continue CPAP with home settings. 6. Diabetes mellitus. Hold metformin, sliding scale insulin before meals and at bedtime. 7. Hypertension. Continue home meds DVT prophylaxis: Xarelto GI prophylaxis: Home PPI VS, I&O, 24H, Fishbone Vital Signs/I&O Vital Signs Date Time Temp Pulse Resp B/P (MAP) Pulse Ox O2 Delivery O2 Flow Rate FiO2 06/16/19 14:00 97.1 70 20 130/60 (83) 92 Room Air 06/16/19 06:00 0.5 I&O- Last 24 Hours up to 6 AM 06/16/19 05:59 Intake Total 570 ml Output Total 950 ml Balance -380 ml Laboratory Data 24H LABS Laboratory Tests 2 06/15/19 17:17: Bedside Glucose (Misc Panel) 115H 06/15/19 20:48: Bedside Glucose (Misc Panel) 162H 06/16/19 05:30: Nucleated Red Blood Cells % (auto) 0.0, Anion Gap 6L, Glomerular Filtration Rate > 60.0, Calcium Level 8.2L, Phosphorus Level 2.1L, Magnesium Level 2.1, Troponin I < 0.02 06/16/19 11:28: Bedside Glucose (Misc Panel) 112H CBC/BMP Laboratory Tests 06/16/19 05:30 VENKAT YANES MD Jun 16, 2019 15:30
[2019-06-16] MEDS: RIVAROXABAN 10 MG TAB (XARELTO) PO SCH (17:06)
[2019-06-16] MEDS: ATORVASTATIN 20 MG TAB PO SCH (20:41)
[2019-06-16] MEDS: MONTELUKAST 10 MG TAB PO SCH (20:41)
[2019-06-16 22:00] VITALS: BP 115/58
[2019-06-17] MEDS: PERCOCET 5MG/325MG TAB PO PRN ×3 (04:13→21:27)
[2019-06-17 06:00] VITALS: BP 131/63
[2019-06-17] MEDS ORDERED: XARE10TA PO (06:17)
[2019-06-17] MEDS: HumaLOG INSULIN (NovoLOG) PER UNIT SC SCH ×4 (07:40→20:42)
[2019-06-17] MEDS: MOM 30ML SUSPENSION UDC PO SCH (09:00)
[2019-06-17] MEDS: SENOKOT S TAB PO SCH ×2 (09:00→20:46)
[2019-06-17] MEDS: MIRALAX *UNIT DOSE* 17GM PACKET PO SCH (09:08)
[2019-06-17] MEDS: VITAMIN D 1,000 INTERNATIONAL UNITS TABLET PO SCH (09:08)
[2019-06-17] MEDS: QUINAPRIL 20 MG TAB PO SCH (09:14)
[2019-06-17] MEDS: OMEPRAZOLE 20 MG CAP PO SCH (09:14)
[2019-06-17] MEDS: CitaloPRAM (CeleXA) 20 MG TAB PO SCH (09:15)
[2019-06-17] MEDS: hydroCHLOROthiazide 25 MG TAB PO SCH (09:15)
[2019-06-17] MEDS: CYANOCOBALAMIN 500 MCG TAB PO SCH (09:15)
[2019-06-17] MEDS: ASCORBIC ACID 250 MG TAB PO SCH (09:15)
[2019-06-17 14:00] VITALS: BP 113/42
[2019-06-17] MEDS: RIVAROXABAN 10 MG TAB (XARELTO) PO SCH (17:07)
--- NOTE | 2019-06-17 19:40 | IPNPDOC ---
Date Seen The patient was seen on 06/17/19. Progress Note HISTORY OF PRESENT ILLNESS: 83-year-old female with past medical history of coronary artery disease status post stent 1, COPD, obstructive sleep apnea, diabetes mellitus, CHF and hypertension, presents after slipping and falling while attempting to get out of her car. Patient reports moderate to severe left hip pain, imaging in the ED is consistent with nondisplaced intertrochanteric proximal left femur fracture. ED has discussed the case with Dr. Santos from orthopedic surgery who plans on taking her to the OR later today. Patient has no other complaints at this time, denies any chest pain, short of breath, nausea, vomiting, abdominal pain or diarrhea. At baseline, patient is able to ambulate at least one city block without getting shortness of breath, reports no difficulty with climbing a flight of stairs. She does report a history of CHF, last echocardiogram was 2 years ago, was valid by manager staffing 6 months ago, without cardiac complaints. Patient's cardiac stent was placed nearly 10 years ago, no history of [place], currently at baseline. 06/14/19 No new complaints, pain is well controlled, scheduled for OR later today. She denies any SOB, CP, N/V, abdominal pain or diarrhea. 06/15/19 Underwent femoral rodding for L hip intertrochanteric fracture yesterday, reports hip pain moderately controlled on current regimen, without additional complaints. She denies any SOB, CP, nausea, vomiting, abdominal pain or diarrhea. 06/16/19 Patient comfortable in chair, reports improvement in hip pain and increased mobility with PT, tolerating diet, without complaints, will require rehab prior to returning home. 06/17/19 Comfortable in bed, without complaints, hip pain improving, able to do more w/ PT today, no acute events. 10 point review of system is negative except for above PHYSICAL EXAMINATION: VITAL SIGNS: Please see below. GENERAL: No distress HEENT: Normocephalic, atraumatic, moist mucous membranes NECK: Supple CARDIOVASCULAR EXAMINATION: S1, S2, no murmurs RESPIRATORY EXAMINATION: Clear to auscultation, no wheezing ABDOMINAL EXAMINATION: Soft, nontender, nondistended, positive bowel sounds EXTREMITIES: Range of motion intact SKIN: No rash NEUROLOGICAL EXAMINATION: Alert and oriented 3, no focal deficits PSYCHIATRIC EXAMINATION: Calm and cooperative LABORATORY DATA: See below. IMAGING: X-rays and CT scan consistent with nondisplaced intertrochanteric left femur fracture MICROBIOLOGY: Please see below. ASSESSMENT: 83-year-old female with an extensive medical history, presents to the emergency department with left femur fracture after sustaining a fall while attempting to get out of her car. PLAN: 1. Nondisplaced intertrochanteric proximal left femur fracture. s/p femoral rodding, POD #3, pain well controlled, continue PT, VTE prophylaxis with Xarelto. 2. Coronary artery disease. Status post stent 1, stable, continue optimal medical management. 3. CHF. Stable, reportedly her last echocardiogram was 2 years ago, continue medical management. 4. COPD Stable, continue home meds. 5. Obstructive sleep apnea. Continue CPAP with home settings. 6. Diabetes mellitus. Hold metformin, sliding scale insulin before meals and at bedtime. 7. Hypertension. Continue home meds DVT prophylaxis: Xarelto GI prophylaxis: Home PPI VS, I&O, 24H, Fishbone Vital Signs/I&O Vital Signs Date Time Temp Pulse Resp B/P (MAP) Pulse Ox O2 Delivery O2 Flow Rate FiO2 06/17/19 17:37 16 06/17/19 14:00 97.9 72 113/42 (65) 91 Room Air 06/16/19 06:00 0.5 I&O- Last 24 Hours up to 6 AM 06/17/19 05:59 Intake Total 1620 ml Output Total 1425 ml Balance 195 ml Laboratory Data 24H LABS Laboratory Tests 2 06/16/19 19:40: Bedside Glucose (Misc Panel) 166H 06/17/19 06:58: Bedside Glucose (Misc Panel) 124H 06/17/19 11:48: Bedside Glucose (Misc Panel) 112H 06/17/19 17:04: Bedside Glucose (Misc Panel) 123H VENKAT YANES MD Jun 17, 2019 19:40
[2019-06-17] MEDS: ATORVASTATIN 20 MG TAB PO SCH (20:46)
[2019-06-17] MEDS: MONTELUKAST 10 MG TAB PO SCH (20:46)
[2019-06-17 22:00] VITALS: BP 139/57
[2019-06-18 06:00] VITALS: BP 139/55
[2019-06-18] MEDS: HumaLOG INSULIN (NovoLOG) PER UNIT SC SCH ×4 (07:30→20:42)
[2019-06-18] MEDS: SENOKOT S TAB PO SCH ×2 (08:37→20:41)
[2019-06-18] MEDS: MIRALAX *UNIT DOSE* 17GM PACKET PO SCH (08:37)
[2019-06-18] MEDS: MOM 30ML SUSPENSION UDC PO SCH (08:37)
[2019-06-18] MEDS: VITAMIN D 1,000 INTERNATIONAL UNITS TABLET PO SCH (08:37)
[2019-06-18] MEDS: ASCORBIC ACID 250 MG TAB PO SCH (08:38)
[2019-06-18] MEDS: CYANOCOBALAMIN 500 MCG TAB PO SCH (08:38)
[2019-06-18] MEDS: CitaloPRAM (CeleXA) 20 MG TAB PO SCH (08:38)
[2019-06-18] MEDS: OMEPRAZOLE 20 MG CAP PO SCH (08:38)
[2019-06-18] MEDS: hydroCHLOROthiazide 25 MG TAB PO SCH (08:46)
[2019-06-18] MEDS: QUINAPRIL 20 MG TAB PO SCH (08:46)
[2019-06-18] MEDS: PERCOCET 5MG/325MG TAB PO PRN ×2 (11:25→22:59)
[2019-06-18 14:00] VITALS: BP 123/42
[2019-06-18] MEDS: RIVAROXABAN 10 MG TAB (XARELTO) PO SCH (17:37)
[2019-06-18] MEDS: MONTELUKAST 10 MG TAB PO SCH (20:41)
[2019-06-18] MEDS: ATORVASTATIN 20 MG TAB PO SCH (20:42)
[2019-06-18 22:00] VITALS: BP 124/43
--- NOTE | 2019-06-19 | IPNPDOC ---
Date Seen The patient was seen on 06/18/19. Progress Note HISTORY OF PRESENT ILLNESS: 83-year-old female with past medical history of coronary artery disease status post stent 1, COPD, obstructive sleep apnea, diabetes mellitus, CHF and hypertension, presents after slipping and falling while attempting to get out of her car. Patient reports moderate to severe left hip pain, imaging in the ED is consistent with nondisplaced intertrochanteric proximal left femur fracture. ED has discussed the case with Dr. Santos from orthopedic surgery who plans on taking her to the OR later today. Patient has no other complaints at this time, denies any chest pain, short of breath, nausea, vomiting, abdominal pain or diarrhea. At baseline, patient is able to ambulate at least one city block without getting shortness of breath, reports no difficulty with climbing a flight of stairs. She does report a history of CHF, last echocardiogram was 2 years ago, was valid by cashier supervisor 6 months ago, without cardiac complaints. Patient's cardiac stent was placed nearly 10 years ago, no history of [place], currently at baseline. 06/14/19 No new complaints, pain is well controlled, scheduled for OR later today. She denies any SOB, CP, N/V, abdominal pain or diarrhea. 06/15/19 Underwent femoral rodding for L hip intertrochanteric fracture yesterday, reports hip pain moderately controlled on current regimen, without additional complaints. She denies any SOB, CP, nausea, vomiting, abdominal pain or diarrhea. 06/16/19 Patient comfortable in chair, reports improvement in hip pain and increased mobility with PT, tolerating diet, without complaints, will require rehab prior to returning home. 06/17/19 Comfortable in bed, without complaints, hip pain improving, able to do more w/ PT today, no acute events. 06/18/19 Patient comfortable in chair, continues to have left hip pain, ambulation improving every day, tolerating diet. 10 point review of system is negative except for above PHYSICAL EXAMINATION: VITAL SIGNS: Please see below. GENERAL: No distress HEENT: Normocephalic, atraumatic, moist mucous membranes NECK: Supple CARDIOVASCULAR EXAMINATION: S1, S2, no murmurs RESPIRATORY EXAMINATION: Clear to auscultation, no wheezing ABDOMINAL EXAMINATION: Soft, nontender, nondistended, positive bowel sounds EXTREMITIES: Range of motion intact SKIN: No rash NEUROLOGICAL EXAMINATION: Alert and oriented 3, no focal deficits PSYCHIATRIC EXAMINATION: Calm and cooperative LABORATORY DATA: See below. IMAGING: X-rays and CT scan consistent with nondisplaced intertrochanteric left femur fracture MICROBIOLOGY: Please see below. ASSESSMENT: 83-year-old female with an extensive medical history, presents to the emergency department with left femur fracture after sustaining a fall while attempting to get out of her car. PLAN: 1. Nondisplaced intertrochanteric proximal left femur fracture. s/p femoral rodding, POD #4, pain well controlled, continue PT, VTE prophylaxis with Xarelto, possible discharge tomorrow. 2. Coronary artery disease. Status post stent 1, stable, continue optimal medical management. 3. CHF. Stable, reportedly her last echocardiogram was 2 years ago, continue medical management. 4. COPD Stable, continue home meds. 5. Obstructive sleep apnea. Continue CPAP with home settings. 6. Diabetes mellitus. Hold metformin, sliding scale insulin before meals and at bedtime. 7. Hypertension. Continue home meds DVT prophylaxis: Xarelto GI prophylaxis: Home PPI VS, I&O, 24H, Fishbone Vital Signs/I&O Vital Signs Date Time Temp Pulse Resp B/P (MAP) Pulse Ox O2 Delivery O2 Flow Rate FiO2 06/18/19 22:59 14 06/18/19 22:00 97.3 71 124/43 (70) 94 Room Air 06/16/19 06:00 0.5 I&O- Last 24 Hours up to 6 AM 06/18/19 06:00 Intake Total 900 ml Output Total 1300 ml Balance -400 ml Laboratory Data 24H LABS Laboratory Tests 2 06/18/19 06:26: Bedside Glucose (Misc Panel) 103 06/18/19 11:52: Bedside Glucose (Misc Panel) 118H 06/18/19 16:42: Bedside Glucose (Misc Panel) 113H 06/18/19 20:25: Bedside Glucose (Misc Panel) 128H VENKAT YANES MD Jun 19, 2019 00:00
[2019-06-19 06:00] VITALS: BP 142/66
[2019-06-19 07:02] LABS: HEMATOCRIT 35.4 % (36.0-47.0); HEMOGLOBIN 11.4 g/dl (12.0-15.5); MEAN CORPUSCULAR HEMOGLOBIN 31.4 pg (27.0-33.0); MEAN CORPUSCULAR HGB CONC 32.2 g/dl (32.0-36.5); MEAN CORPUSCULAR VOLUME 97.5 fl (80.0-96.0); PLATELET COUNT, AUTOMATED 253 10^3/uL (150-450); RED BLOOD COUNT 3.63 10^6/uL (4.00-5.40); WHITE BLOOD COUNT 9.3 10^3/uL (4.0-10.0)
[2019-06-19 07:26] LABS: BLOOD UREA NITROGEN 22 MG/DL (7-18); CALCIUM LEVEL 9.3 MG/DL (8.8-10.2); CARBON DIOXIDE LEVEL 31 MEQ/L (21-32); CHLORIDE LEVEL 103 MEQ/L (98-107); CREATININE FOR GFR 0.86 MG/DL (0.55-1.30); GLOMERULAR FILTRATION RATE > 60.0 (>32); GLUCOSE, FASTING 118 MG/DL (70-100); MAGNESIUM LEVEL 2.2 MG/DL (1.8-2.4); PHOSPHORUS LEVEL 2.5 MG/DL (2.5-4.9); SODIUM LEVEL 141 MEQ/L (136-145)
[2019-06-19] MEDS ORDERED: K-PHOS NEUTRAL 250MG TABLET (SOD.PHOSPHATE/POT.PHOSPHATE) PO SCH (09:00)
[2019-06-19] MEDS: HumaLOG INSULIN (NovoLOG) PER UNIT SC SCH ×2 (09:52→12:00)
[2019-06-19] MEDS: MIRALAX *UNIT DOSE* 17GM PACKET PO SCH (09:52)
[2019-06-19 09:53] VITALS: BP 127/42
[2019-06-19] MEDS: QUINAPRIL 20 MG TAB PO SCH (09:53)
[2019-06-19] MEDS: CitaloPRAM (CeleXA) 20 MG TAB PO SCH (09:54)
[2019-06-19] MEDS: OMEPRAZOLE 20 MG CAP PO SCH (09:54)
[2019-06-19] MEDS: VITAMIN D 1,000 INTERNATIONAL UNITS TABLET PO SCH (09:54)
[2019-06-19] MEDS: SENOKOT S TAB PO SCH (09:54)
[2019-06-19] MEDS: hydroCHLOROthiazide 25 MG TAB PO SCH (09:54)
[2019-06-19] MEDS: CYANOCOBALAMIN 500 MCG TAB PO SCH (09:54)
[2019-06-19] MEDS: ASCORBIC ACID 250 MG TAB PO SCH (09:55)
[2019-06-19] MEDS: MOM 30ML SUSPENSION UDC PO SCH (09:56)
--- NOTE | 2019-06-19 22:36 | DS.PDOC ---
Discharge Summary General Date of Admission Jun 13, 2019 at 12:45 Date of Discharge 06/19/19 Attending Physician: VENKAT YANES MD Discharge Summary PROCEDURES PERFORMED DURING STAY: None ADMITTING DIAGNOSES: 1. L hip fracture DISCHARGE DIAGNOSES: 1. L hip fracture COMPLICATIONS/CHIEF COMPLAINT: Cad,Copd,Diabetes,Fall,Hip Fx,Hld,Htn,Desmond On Cpap. HISTORY OF PRESENT ILLNESS: 83 y.o female w/ PMH of CAD, COPD, DM, HTN & DESMOND was admitted for L hip fracture 2/2 mechanical fall. She underwent rodding of her femur, worked with PT, rehab recommended and arrangements were made for her to be discharged to [facility]. She has done great post op, pain is well controlled and she has improved daily with physical therapy. She is clinically and hemodynamically stable for discharge to [facility]. HOSPITAL COURSE: As above DISCHARGE MEDICATIONS: Please see below. ALLERGIES: Please see below. PHYSICAL EXAMINATION: VITAL SIGNS: Please see below. GENERAL: No distress HEENT: Normocephalic, atraumatic, moist mucous membranes NECK: Supple CARDIOVASCULAR EXAMINATION: S1, S2, no murmurs RESPIRATORY EXAMINATION: Clear to auscultation, no wheezing ABDOMINAL EXAMINATION: Soft, nontender, nondistended, positive bowel sounds EXTREMITIES: Range of motion intact SKIN: No rash NEUROLOGICAL EXAMINATION: Alert and oriented 3, no focal deficits PSYCHIATRIC EXAMINATION: Calm and cooperative LABORATORY DATA: Please see below. IMAGING: L hip fracture, non-displaced PROGNOSIS: Fair ACTIVITY: As tolerated w/ assistance DIET: Cardiac w/ consistent carbs DISCHARGE PLAN: Follow up w/ Orthopedic surgery & PCP in 1-2 weeks DISPOSITION: [facility]. DISCHARGE INSTRUCTIONS: 1. As above DISCHARGE CONDITION: Stable TIME SPENT ON DISCHARGE: Greater than 26 minutes. Vital Signs/I&Os Vital Signs Date Time Temp Pulse Resp B/P (MAP) Pulse Ox O2 Delivery O2 Flow Rate FiO2 06/19/19 09:53 127/42 06/19/19 06:00 97.8 66 20 94 Room Air 06/19/19 02:35 21 06/16/19 06:00 0.5 I&O- Last 24 Hours up to 6 AM 06/19/19 06:00 Intake Total 1850 ml Output Total 1400 ml Balance 450 ml Laboratory Data Labs 24H Laboratory Tests 2 06/19/19 05:51: Bedside Glucose (Misc Panel) 121H 06/19/19 06:34: Nucleated Red Blood Cells % (auto) 0.0, Anion Gap 7L, Glomerular Filtration Rate > 60.0, Calcium Level 9.3, Phosphorus Level 2.5, Magnesium Level 2.2 06/19/19 11:21: Bedside Glucose (Misc Panel) 142H CBC/BMP Laboratory Tests 06/19/19 06:34 FSBS Laboratory Tests Test 06/19/19 05:51 06/19/19 11:21 Range/Units Bedside Glucose (Misc Panel) 121 142 83-110 MG/DL Discharge Medications Scheduled Ascorbic Acid (Vitamin C) 250 Mg Tab, 250 MG PO DAILY, (Reported) Aspirin (Aspirin EC) 81 Mg Tab, 81 MG PO DAILY, (Reported) Atorvastatin Calcium (Atorvastatin Calcium) 20 Mg Tablet, 20 MG PO QHS, (Reported) Cholecalciferol (Vitamin D3) (Vitamin D3) 2,000 Unit Tab, 2,000 UNIT PO DAILY, (Reported) Cinnamon Bark (Cinnamon) 500 Mg Capsule, 500 MG PO DAILY, (Reported) Citalopram Hydrobromide (Citalopram HBr) 20 Mg Tab, 20 MG PO DAILY, (Reported) Cyanocobalamin (Vitamin B-12) (Vitamin B-12) 1,000 Mcg Tab, 1,000 MCG PO DAILY, (Reported) Hydrochlorothiazide (Hydrochlorothiazide) 25 Mg Tablet, 25 MG PO DAILY, (Reported) Magnesium Oxide (Magnesium) 400 Mg Capsule, 400 MG PO DAILY, (Reported) Metformin HCl (Metformin HCl) 500 Mg Tab, 500 MG PO BID, (Reported) Mometasone/Formoterol (Dulera 100 Mcg/5 Mcg Inhaler) 1 Aer Aer, 1 PUFF INH BID, (Reported) Montelukast Sodium (Singulair) 10 Mg Tab, 10 MG PO QHS, (Reported) Omeprazole (Omeprazole) 20 Mg Cap, 20 MG PO DAILY, (Reported) Quinapril Hcl (Quinapril HCl) 40 Mg Tab, 40 MG PO DAILY, (Reported) Rivaroxaban (Xarelto) 10 Mg Tablet, 10 MG PO DAILY Ubidecarenone (Co Q-10) 400 Mg Cap, 400 MG PO DAILY, (Reported) Scheduled PRN Alprazolam (Xanax) 0.5 Mg Tablet, 0.5 MG PO QID PRN for ANXIETY, (Reported) Nitroglycerin (Nitroglycerin) 0.4 Mg Tab.subl, 0.4 MG SL NITRO PRN for CHEST PAIN, (Reported) Allergies Coded Allergies: Sulfa (Sulfonamide Antibiotics) (Verified Allergy, Intermediate, RASH, SWELLING, 06/13/19) VENKAT YANES MD Jun 19, 2019 22:36
== END 2019-06-19 12:59 | DRG 482 ==
LOC: EDBD 10:21 → M ED 10:21 → M ED INP 12:45 → M PCU 15:02 → M MSPAV 06-15 10:36
PROVIDERS: ADMIT Internal Medicine; ATTEND Internal Medicine
PROC: 0QS706Z Reposition Left Upper Femur with Intramedullary Internal Fixation Device, Open Approach (ICD-10-PCS; principal; 2019-06-14 12:00)
DX: S72.145A Nondisplaced intertrochanteric fracture of left femur, initial encounter for closed fracture (principal); I25.10 Atherosclerotic heart disease of native coronary artery without angina pectoris; J44.9 Chronic obstructive pulmonary disease, unspecified; E11.9 Type 2 diabetes mellitus without complications; G47.33 Obstructive sleep apnea (adult) (pediatric); I11.0 Hypertensive heart disease with heart failure; Z79.899 Other long term (current) drug therapy; Z79.82 Long term (current) use of aspirin; Z88.2 Allergy status to sulfonamides; I50.9 Heart failure, unspecified; Z95.2 Presence of prosthetic heart valve; W18.30XA Fall on same level, unspecified, initial encounter; Y92.009 Unspecified place in unspecified non-institutional (private) residence as the place of occurrence of the external cause; Z87.891 Personal history of nicotine dependence

== ENCOUNTER → 2019-06-26 | Outpatient (REF) ==
[~2019-06-26] MED LIST changes: +ATOR1TAB21 PO; +CINN500C15 PO; +HYDR25TAB PO; +MAGN400C2 PO; +NITR0.4S14 SL; +XARE10TA PO
[2019-06-26 11:47] LABS: HEMATOCRIT 40.3 % (36.0-47.0); HEMOGLOBIN 12.7 g/dl (12.0-15.5); MEAN CORPUSCULAR HEMOGLOBIN 31.6 pg (27.0-33.0); MEAN CORPUSCULAR HGB CONC 31.5 g/dl (32.0-36.5); MEAN CORPUSCULAR VOLUME 100.2 fl (80.0-96.0); PLATELET COUNT, AUTOMATED 414 10^3/uL (150-450); RED BLOOD COUNT 4.02 10^6/uL (4.00-5.40)
[2019-06-26 12:15] LABS: BLOOD UREA NITROGEN 21 MG/DL (7-18); CALCIUM LEVEL 9.8 MG/DL (8.8-10.2); CARBON DIOXIDE LEVEL 28 MEQ/L (21-32); CHLORIDE LEVEL 102 MEQ/L (98-107); GLOMERULAR FILTRATION RATE > 60.0 (>32); GLUCOSE, FASTING 116 MG/DL (70-100); POTASSIUM SERUM 4.6 MEQ/L (3.5-5.1); SODIUM LEVEL 139 MEQ/L (136-145)
== END ==
PROVIDERS: ATTEND Internal Medicine
DX: S72.001A Fracture of unspecified part of neck of right femur, initial encounter for closed fracture (principal); X58.XXXA Exposure to other specified factors, initial encounter

== ENCOUNTER → 2019-07-06 | Outpatient (REF) ==
[2019-07-06 12:45] LABS: HEMATOCRIT 39.6 % (36.0-47.0); HEMOGLOBIN 12.1 g/dl (12.0-15.5); MEAN CORPUSCULAR HEMOGLOBIN 30.7 pg (27.0-33.0); MEAN CORPUSCULAR HGB CONC 30.6 g/dl (32.0-36.5); MEAN CORPUSCULAR VOLUME 100.5 fl (80.0-96.0); PLATELET COUNT, AUTOMATED 322 10^3/uL (150-450); RED BLOOD COUNT 3.94 10^6/uL (4.00-5.40); WHITE BLOOD COUNT 10.5 10^3/uL (4.0-10.0)
[2019-07-06 13:22] LABS: BLOOD UREA NITROGEN 21 MG/DL (7-18); CARBON DIOXIDE LEVEL 29 MEQ/L (21-32); CHLORIDE LEVEL 103 MEQ/L (98-107); CREATININE FOR GFR 0.84 MG/DL (0.55-1.30); GLOMERULAR FILTRATION RATE > 60.0 (>32); GLUCOSE, FASTING 121 MG/DL (70-100); POTASSIUM SERUM 4.2 MEQ/L (3.5-5.1); SODIUM LEVEL 141 MEQ/L (136-145)
== END ==
PROVIDERS: ATTEND Internal Medicine
DX: S72.001A Fracture of unspecified part of neck of right femur, initial encounter for closed fracture (principal); X58.XXXA Exposure to other specified factors, initial encounter

== ENCOUNTER 2020-10-15 08:31 | Emergency (ER) | payer MEDICARE ==
[~2020-10-15] VITALS: Ht 165.1 cm; Wt 69.9 kg
[~2020-10-15 08:31] MED LIST changes: +ASPI-546 PO; -ASPI1TAB15 PO; +HYDR-3490 PO; -HYDR25TAB PO; -OMEP-172 PO; +OMEP1CAP73 PO; -VITA1TAB23 PO; +VITA250T26 PO
[2020-10-15 08:32] VITALS: BP 176/77
[2020-10-15] MEDS ORDERED: SYMB16INH INH (08:42)
[2020-10-15] MEDS ORDERED: traMADol 50 MG TAB PO ONE (09:50)
[2020-10-15] MEDS ORDERED: ACETAMINOPHEN TAB 650MG DOSE (2X325MG) PO ONE (09:50)
--- NOTE | 2020-10-15 10:05 | REP ---
INDICATION: persistent low back pain after fall 2 weeks ago COMPARISON: Correlation with CT dated 07/08/2018 TECHNIQUE: AP, lateral, bilateral oblique, and coned-down views of the lumbar spine. FINDINGS: Diffuse osteopenia and degenerative changes are noted. There is compression deformity at L1 with approximately 20% loss of superior vertebral body height as compared with 2019 CT. Findings suggest compression fracture of indeterminate age although the contour is without obvious cortical lucency to suggest acute injury. IMPRESSION: 1. There is a mild compression deformity at L1 of indeterminate age but relatively new as compared with CT dated 07/08/2018. 2. Generalized osteopenia and advanced multilevel degenerative spondylosis. <Electronically signed by Estuardo Epps > 10/15/20 [id number]
[2020-10-15 10:48] LABS: BASO # 0.1 10^3/uL (0.0-0.2); BASO % 0.5 % (0.0-1.0); EOS # 0.1 10^3/uL (0.0-0.5); EOS % 0.8 % (0.0-3.0); HEMOGLOBIN 14.2 g/dl (12.0-15.5); LYMPH % 15.9 % (24.0-44.0); MEAN CORPUSCULAR HGB CONC 32.3 g/dl (32.0-36.5); MEAN CORPUSCULAR VOLUME 96.1 fl (80.0-96.0); MONO # 0.7 10^3/uL (0.0-0.8); MONO % 5.8 % (2.0-8.0); NEUTROPHILS # 9.5 10^3/uL (1.5-8.5); NEUTROPHILS % 76.4 % (36.0-66.0); PLATELET COUNT, AUTOMATED 336 10^3/uL (150-450); RED BLOOD COUNT 4.58 10^6/uL (4.00-5.40); WHITE BLOOD COUNT 12.4 10^3/uL (4.0-10.0)
[2020-10-15 11:32] LABS: ALBUMIN 3.6 GM/DL (3.2-5.2); ALT/SGPT 22 U/L (12-78); BILIRUBIN,DIRECT 0.2 MG/DL (0.0-0.2); BILIRUBIN,TOTAL 0.6 MG/DL (0.2-1.0); BLOOD UREA NITROGEN 25 MG/DL (7-18); CALCIUM LEVEL 10.3 MG/DL (8.8-10.2); CARBON DIOXIDE LEVEL 32 MEQ/L (21-32); CHLORIDE LEVEL 102 MEQ/L (98-107); GLOMERULAR FILTRATION RATE > 60.0 (>32); GLUCOSE, FASTING 104 MG/DL (70-100); LIPASE 76 U/L (73-393); POTASSIUM SERUM 4.3 MEQ/L (3.5-5.1); SODIUM LEVEL 140 MEQ/L (136-145); TOTAL PROTEIN 6.7 GM/DL (6.4-8.2)
[2020-10-15] MEDS ORDERED: ULTR50TA8 PO (11:45)
--- NOTE | 2020-10-17 09:16 | ED PDOC ---
Post-Departure Follow-Up radiology report faxed to Tirso Driver Sarah MD Oct 17, 2020 09:16
== END 2020-10-15 12:02 | disposition home or self-care (01) ==
LOC: M ED 08:31
DX: S33.5XXA Sprain of ligaments of lumbar spine, initial encounter (principal); S39.012A Strain of muscle, fascia and tendon of lower back, initial encounter; X50.3XXA Overexertion from repetitive movements, initial encounter; Z79.82 Long term (current) use of aspirin; Z79.84 Long term (current) use of oral hypoglycemic drugs; Z79.899 Other long term (current) drug therapy; Z88.1 Allergy status to other antibiotic agents; Z88.2 Allergy status to sulfonamides; Z91.048 Other nonmedicinal substance allergy status; Y92.9 Unspecified place or not applicable; Y93.9 Activity, unspecified; Y99.9 Unspecified external cause status

== ENCOUNTER → 2023-05-31 | Outpatient (CLI) | payer MEDICARE ==
[~2023-05-31] MED LIST changes: -CO Q400C2 PO; +CVS400CA10 PO; -DULE100A INH; +MOME13HF8 INH; +MONT-5 PO; +NYST-38 SS; -NYST50SS SS; -SING10TA32 PO; +SYMB16INH INH; +ULTR50TA8 PO
== END ==
LOC: M RAD 11:33
PROVIDERS: ATTEND Surgery Vascular Surgery
DX: I65.23 Occlusion and stenosis of bilateral carotid arteries (principal)

== ENCOUNTER 2023-06-24 17:52 | Inpatient (IN) | payer MEDICARE ==
[~2023-06-24] VITALS: Ht 162.6 cm; Wt 72.1 kg
[2023-06-24 20:55] LABS: BASO % 0.5 % (0.0-1.0); EOS # 0.5 10^3/uL (0.0-0.5); HEMATOCRIT 38.6 % (36.0-47.0); HEMOGLOBIN 12.4 g/dl (12.0-15.5); LYMPH % 26.4 % (24.0-44.0); MEAN CORPUSCULAR HEMOGLOBIN 30.4 pg (27.0-33.0); MEAN CORPUSCULAR HGB CONC 32.1 g/dl (32.0-36.5); MEAN CORPUSCULAR VOLUME 94.6 fl (80.0-96.0); MONO # 0.5 10^3/uL (0.0-0.8); NEUTROPHILS # 4.4 10^3/uL (1.5-8.5); NEUTROPHILS % 58.7 % (36.0-66.0); PLATELET COUNT, AUTOMATED 200 10^3/uL (150-450); RED BLOOD COUNT 4.08 10^6/uL (4.00-5.40); WHITE BLOOD COUNT 7.5 10^3/uL (4.0-10.0)
[2023-06-24 21:15] LABS: CK-MB VALUE MASS < 1.0 NG/ML (<3.6)
[2023-06-24 21:17] LABS: BLOOD UREA NITROGEN 19 MG/DL (9-23); CARBON DIOXIDE LEVEL 27 MMOL/L (20-31); CHLORIDE LEVEL 107 MMOL/L (98-107); CREATININE FOR GFR 0.76 MG/DL (0.55-1.30); GLOMERULAR FILTRATION RATE > 60.0 (>32); GLUCOSE, FASTING 102 MG/DL (74-106); MAGNESIUM LEVEL 1.8 MG/DL (1.8-2.4); POTASSIUM SERUM 4.5 MMOL/L (3.5-5.1); SODIUM LEVEL 141 MMOL/L (136-145)
[2023-06-24 21:18] LABS: CPK CREATINE PHOSPHOKINASE 57 U/L (34-145); MB/CK RELATIVE INDEX 1.75 (< OR =4)
[2023-06-24] MEDS ORDERED: ISOVUE-370 76% 100ML VIAL As Ordered ONE (21:32)
[2023-06-24 22:24] LABS: CK-MB VALUE MASS < 1.0 NG/ML (<3.6); CPK CREATINE PHOSPHOKINASE 45 U/L (34-145); MB/CK RELATIVE INDEX 2.22 (< OR =4)
[2023-06-25] VITALS (9 sets, daily range): BP systolic 130–145; BP diastolic 57–68; TEMP 97–97.6; O2SAT 93–97
[2023-06-25] MEDS ORDERED: VITA100093 PO (00:22)
[2023-06-25] MEDS ORDERED: CARV6.25 PO (00:22)
[2023-06-25] MEDS ORDERED: ELIQ5TAB PO (00:22)
[2023-06-25] MEDS ORDERED: LISI40TA4 PO (00:22)
[2023-06-25] MEDS ORDERED: HOME MED LIST COMPLETE! XX SCH (00:25)
[2023-06-25] MEDS ORDERED: REMDESIVIR 200 MG in NS 250 ML IV ONE ×2 (01:40→04:00)
[2023-06-25] MEDS ORDERED: DEXTROSE 50% 50ML SYRINGE IV PRN (01:50)
[2023-06-25] MEDS ORDERED: GLUCOSE 4GM CHEW TABLET PO PRN (01:50)
[2023-06-25] MEDS ORDERED: NITROGLYCERIN 0.4MG SUBL TABLET SL PRN ×2 (01:50→02:30)
[2023-06-25] MEDS ORDERED: GLUCAGON INJ 1MG VIAL SC PRN (01:50)
[2023-06-25] MEDS: cefTRIAXone SOD 1 GM in D5W MINI-BAG PLUS 50 ML IV SCH (02:04)
[2023-06-25] MEDS: ALBUTEROL 90 MCG/ACT 8GM HFA INHALER INH SCH ×4 (02:12→20:57)
[2023-06-25 03:48] LABS: INR 1.54; PARTIAL THROMBOPLASTIN TIME 34.2 SECONDS (24.8-34.2)
[2023-06-25 03:49] LABS: FIBRINOGEN 449 MG/DL (268-480)
[2023-06-25 03:51] LABS: D-DIMER QUANT < 0.27 ug/mL (<0.5)
[2023-06-25 03:56] LABS: MAGNESIUM LEVEL 1.8 MG/DL (1.8-2.4)
[2023-06-25 03:57] LABS: LDH LACTATE DEHYDROGENASE 176 U/L (120-246)
[2023-06-25 04:00] LABS: FERRITIN 33.1 NG/ML (7.3-270.7)
[2023-06-25 04:07] LABS: PROCALCITONIN <0.04 ng/ml
[2023-06-25] MEDS: MONTELUKAST 10 MG TAB PO SCH ×2 (04:34→20:45)
[2023-06-25] MEDS: DOXYCYCLINE HYCLATE 100MG TABLET PO SCH ×2 (04:34→20:45)
[2023-06-25] MEDS: INSULIN LISPRO (NovoLOG) PER UNIT SC SCH ×4 (07:30→20:46)
[2023-06-25] MEDS: SYMBICORT 160/4.5MCG INHALER 6GM INH SCH ×2 (08:10→20:57)
[2023-06-25 08:17] LABS: BLOOD UREA NITROGEN 17 MG/DL (9-23); CALCIUM LEVEL 9.1 MG/DL (8.3-10.6); CARBON DIOXIDE LEVEL 29 MMOL/L (20-31); CHLORIDE LEVEL 107 MMOL/L (98-107); CREATININE FOR GFR 0.76 MG/DL (0.55-1.30); GLOMERULAR FILTRATION RATE > 60.0 (>32); GLUCOSE, FASTING 154 MG/DL (74-106); POTASSIUM SERUM 4.1 MMOL/L (3.5-5.1); SODIUM LEVEL 142 MMOL/L (136-145)
[2023-06-25] MEDS: OMEPRAZOLE 20MG CAP PO SCH (08:22)
[2023-06-25] MEDS: APIXABAN 5 MG TAB (ELIQUIS) PO SCH ×2 (08:22→20:45)
[2023-06-25] MEDS: VITAMIN D 1,000 INTERNATIONAL UNITS TABLET PO SCH (08:22)
[2023-06-25] MEDS: CitaloPRAM (CeleXA) 20 MG TAB PO SCH (08:22)
[2023-06-25] MEDS: ASPIRIN 81MG ENTERIC TABLET PO SCH (08:23)
[2023-06-25] MEDS: CYANOCOBALAMIN 500 MCG TAB PO SCH (08:23)
[2023-06-25] MEDS: CARVedilol 6.25 MG TAB PO SCH ×2 (08:25→20:46)
[2023-06-25] MEDS: MAGNESIUM OXIDE 400MG TAB (MAG-OX) PO SCH (08:26)
[2023-06-25] MEDS ORDERED: ASPIRIN 81MG ENTERIC TABLET PO SCH (09:00)
[2023-06-25] MEDS ORDERED: OMEPRAZOLE 20MG CAP PO SCH (09:00)
[2023-06-25] MEDS ORDERED: CARVedilol 6.25 MG TAB PO SCH (09:00)
[2023-06-25] MEDS ORDERED: SYMBICORT 160/4.5MCG INHALER 6GM INH SCH (09:00)
[2023-06-25] MEDS ORDERED: ASCORBIC ACID 250 MG TAB PO SCH (09:00)
[2023-06-25] MEDS ORDERED: CitaloPRAM (CeleXA) 20 MG TAB PO SCH (09:00)
[2023-06-25] MEDS: ASCORBIC ACID 250 MG TAB PO SCH (09:00)
[2023-06-25] MEDS ORDERED: DOXYCYCLINE HYCLATE 100MG TABLET PO SCH (09:00)
[2023-06-25] MEDS ORDERED: VITAMIN D 1,000 INTERNATIONAL UNITS TABLET PO SCH (09:00)
[2023-06-25] MEDS ORDERED: APIXABAN 5 MG TAB (ELIQUIS) PO SCH (09:00)
[2023-06-25] MEDS ORDERED: lisinopriL 40MG TAB PO SCH (09:00)
[2023-06-25] MEDS ORDERED: MAGNESIUM OXIDE 400MG TAB (MAG-OX) PO SCH (09:00)
[2023-06-25] MEDS ORDERED: CYANOCOBALAMIN 500 MCG TAB PO SCH (09:00)
[2023-06-25] MEDS: ATORVASTATIN 20 MG TAB PO SCH (20:45)
[2023-06-25] MEDS ORDERED: MONTELUKAST 10 MG TAB PO SCH (21:00)
[2023-06-25] MEDS ORDERED: ATORVASTATIN 20 MG TAB PO SCH (21:00)
[2023-06-26] VITALS (8 sets, daily range): BP systolic 110–140; BP diastolic 63–64; TEMP 96.6–97.9; O2SAT 94–99
[2023-06-26] MEDS ORDERED: REMDESIVIR 100 MG in NS 250 ML IV SCH (01:40)
[2023-06-26] MEDS: ALBUTEROL 90 MCG/ACT 8GM HFA INHALER INH SCH ×3 (02:14→14:52)
[2023-06-26] MEDS: cefTRIAXone SOD 1 GM in D5W MINI-BAG PLUS 50 ML IV SCH (02:52)
[2023-06-26] MEDS: REMDESIVIR 100 MG in NS 250 ML IV SCH (06:16)
[2023-06-26 07:04] LABS: BASO % 0.3 % (0.0-1.0); EOS % 0.4 % (0.0-3.0); HEMATOCRIT 33.3 % (36.0-47.0); HEMOGLOBIN 10.9 g/dl (12.0-15.5); LYMPH % 25.2 % (24.0-44.0); MEAN CORPUSCULAR HEMOGLOBIN 30.3 pg (27.0-33.0); MEAN CORPUSCULAR HGB CONC 32.7 g/dl (32.0-36.5); MEAN CORPUSCULAR VOLUME 92.5 fl (80.0-96.0); MONO # 0.6 10^3/uL (0.0-0.8); MONO % 7.1 % (2.0-8.0); NEUTROPHILS # 5.2 10^3/uL (1.5-8.5); NEUTROPHILS % 66.6 % (36.0-66.0); PLATELET COUNT, AUTOMATED 201 10^3/uL (150-450); WHITE BLOOD COUNT 7.8 10^3/uL (4.0-10.0)
[2023-06-26] MEDS: INSULIN LISPRO (NovoLOG) PER UNIT SC SCH ×4 (07:30→21:00)
[2023-06-26 07:34] LABS: BLOOD UREA NITROGEN 23 MG/DL (9-23); CARBON DIOXIDE LEVEL 29 MMOL/L (20-31); CHLORIDE LEVEL 109 MMOL/L (98-107); CREATININE FOR GFR 0.71 MG/DL (0.55-1.30); GLOMERULAR FILTRATION RATE > 60.0 (>32); GLUCOSE, FASTING 98 MG/DL (74-106); POTASSIUM SERUM 3.7 MMOL/L (3.5-5.1); SODIUM LEVEL 143 MMOL/L (136-145)
[2023-06-26] MEDS: SYMBICORT 160/4.5MCG INHALER 6GM INH SCH ×2 (08:47→20:04)
[2023-06-26] MEDS: OMEPRAZOLE 20MG CAP PO SCH (09:20)
[2023-06-26] MEDS: ASPIRIN 81MG ENTERIC TABLET PO SCH (09:21)
[2023-06-26] MEDS: DOXYCYCLINE HYCLATE 100MG TABLET PO SCH ×2 (09:21→20:17)
[2023-06-26] MEDS: MAGNESIUM OXIDE 400MG TAB (MAG-OX) PO SCH (09:21)
[2023-06-26] MEDS: CYANOCOBALAMIN 500 MCG TAB PO SCH (09:21)
[2023-06-26] MEDS: ASCORBIC ACID 250 MG TAB PO SCH (09:21)
[2023-06-26] MEDS: VITAMIN D 1,000 INTERNATIONAL UNITS TABLET PO SCH (09:25)
[2023-06-26] MEDS: CARVedilol 6.25 MG TAB PO SCH ×2 (09:25→20:19)
[2023-06-26] MEDS: CitaloPRAM (CeleXA) 20 MG TAB PO SCH (09:25)
[2023-06-26] MEDS: APIXABAN 5 MG TAB (ELIQUIS) PO SCH ×2 (09:25→20:17)
[2023-06-26] MEDS: MONTELUKAST 10 MG TAB PO SCH (20:18)
[2023-06-26] MEDS: ATORVASTATIN 20 MG TAB PO SCH (20:18)
[2023-06-27 02:00] VITALS: O2SAT 95
[2023-06-27] MEDS: cefTRIAXone SOD 1 GM in D5W MINI-BAG PLUS 50 ML IV SCH (02:32)
[2023-06-27] MEDS: REMDESIVIR 100 MG in NS 250 ML IV SCH (05:10)
[2023-06-27 06:00] VITALS: BP 121/61; TEMP 97.9; O2SAT 96
[2023-06-27 08:00] VITALS: O2SAT 96
[2023-06-27] MEDS: ALBUTEROL 90 MCG/ACT 8GM HFA INHALER INH SCH ×3 (08:01→19:23)
[2023-06-27] MEDS: SYMBICORT 160/4.5MCG INHALER 6GM INH SCH ×2 (08:02→19:23)
[2023-06-27] MEDS: INSULIN LISPRO (NovoLOG) PER UNIT SC SCH ×4 (08:40→20:28)
[2023-06-27] MEDS: ASPIRIN 81MG ENTERIC TABLET PO SCH (08:40)
[2023-06-27] MEDS: ASCORBIC ACID 250 MG TAB PO SCH (08:41)
[2023-06-27] MEDS: OMEPRAZOLE 20MG CAP PO SCH (08:41)
[2023-06-27] MEDS: APIXABAN 5 MG TAB (ELIQUIS) PO SCH ×2 (08:41→20:27)
[2023-06-27] MEDS: DOXYCYCLINE HYCLATE 100MG TABLET PO SCH ×2 (08:41→20:26)
[2023-06-27] MEDS: VITAMIN D 1,000 INTERNATIONAL UNITS TABLET PO SCH (08:41)
[2023-06-27] MEDS: CYANOCOBALAMIN 500 MCG TAB PO SCH (08:41)
[2023-06-27] MEDS: MAGNESIUM OXIDE 400MG TAB (MAG-OX) PO SCH (08:42)
[2023-06-27] MEDS: CitaloPRAM (CeleXA) 20 MG TAB PO SCH (08:42)
[2023-06-27] MEDS: CARVedilol 6.25 MG TAB PO SCH ×2 (08:48→20:27)
[2023-06-27 14:00] VITALS: BP 128/62; TEMP 97.1; O2SAT 96
[2023-06-27 20:20] VITALS: BP 136/61; TEMP 97.9; O2SAT 97
[2023-06-27] MEDS: ATORVASTATIN 20 MG TAB PO SCH (20:27)
[2023-06-27] MEDS: MONTELUKAST 10 MG TAB PO SCH (20:27)
[2023-06-27 22:00] VITALS: O2SAT 97
[2023-06-28] MEDS: ALBUTEROL 90 MCG/ACT 8GM HFA INHALER INH SCH ×2 (02:53→08:20)
[2023-06-28] MEDS: cefTRIAXone SOD 1 GM in D5W MINI-BAG PLUS 50 ML IV SCH (03:55)
[2023-06-28] MEDS: REMDESIVIR 100 MG in NS 250 ML IV SCH (05:08)
[2023-06-28 06:00] VITALS: BP 132/62; TEMP 97.9; O2SAT 96
[2023-06-28 07:57] LABS: HEMATOCRIT 37.6 % (36.0-47.0); HEMOGLOBIN 12.1 g/dl (12.0-15.5); MEAN CORPUSCULAR HGB CONC 32.2 g/dl (32.0-36.5); MEAN CORPUSCULAR VOLUME 93.3 fl (80.0-96.0); PLATELET COUNT, AUTOMATED 275 10^3/uL (150-450); RED BLOOD COUNT 4.03 10^6/uL (4.00-5.40); WHITE BLOOD COUNT 12.4 10^3/uL (4.0-10.0)
[2023-06-28 08:05] VITALS: BP 135/65
[2023-06-28] MEDS: APIXABAN 5 MG TAB (ELIQUIS) PO SCH (08:05)
[2023-06-28] MEDS: VITAMIN D 1,000 INTERNATIONAL UNITS TABLET PO SCH (08:05)
[2023-06-28] MEDS: OMEPRAZOLE 20MG CAP PO SCH (08:05)
[2023-06-28] MEDS: CARVedilol 6.25 MG TAB PO SCH (08:05)
[2023-06-28] MEDS: CitaloPRAM (CeleXA) 20 MG TAB PO SCH (08:05)
[2023-06-28] MEDS: CYANOCOBALAMIN 500 MCG TAB PO SCH (08:06)
[2023-06-28] MEDS: ASPIRIN 81MG ENTERIC TABLET PO SCH (08:06)
[2023-06-28] MEDS: MAGNESIUM OXIDE 400MG TAB (MAG-OX) PO SCH (08:06)
[2023-06-28] MEDS: ASCORBIC ACID 250 MG TAB PO SCH (08:06)
[2023-06-28] MEDS: DOXYCYCLINE HYCLATE 100MG TABLET PO SCH (08:06)
[2023-06-28] MEDS: INSULIN LISPRO (NovoLOG) PER UNIT SC SCH ×2 (08:07→12:00)
[2023-06-28 08:13] LABS: BLOOD UREA NITROGEN 27 MG/DL (9-23); CALCIUM LEVEL 9.6 MG/DL (8.3-10.6); CARBON DIOXIDE LEVEL 31 MMOL/L (20-31); CHLORIDE LEVEL 105 MMOL/L (98-107); CREATININE FOR GFR 0.76 MG/DL (0.55-1.30); GLOMERULAR FILTRATION RATE > 60.0 (>32); GLUCOSE, FASTING 106 MG/DL (74-106); POTASSIUM SERUM 3.8 MMOL/L (3.5-5.1); SODIUM LEVEL 142 MMOL/L (136-145)
[2023-06-28] MEDS: SYMBICORT 160/4.5MCG INHALER 6GM INH SCH (08:21)
[2023-06-28] MEDS ORDERED: MIRALAX *UNIT DOSE* 17GM PACKET PO PRN (09:20)
[2023-06-28] MEDS ORDERED: SENOKOT S TAB PO SCH (09:20)
[2023-06-28] MEDS ORDERED: CEFD1CAP9 PO (11:14)
[2023-06-28] MEDS ORDERED: DOXY100T PO (11:14)
== END 2023-06-28 13:40 | disposition home or self-care (01) | DRG 177 ==
LOC: M ED 17:52 → M MS5PR 06-25 01:38 → M ED 06-25 02:26
PROVIDERS: ADMIT Internal Medicine; ATTEND Family Medicine
DX: U07.1 COVID-19 (principal); J12.82 Pneumonia due to coronavirus disease 2019; K44.9 Diaphragmatic hernia without obstruction or gangrene; E11.9 Type 2 diabetes mellitus without complications; Z79.01 Long term (current) use of anticoagulants; Z79.82 Long term (current) use of aspirin; Z79.899 Other long term (current) drug therapy; Z88.2 Allergy status to sulfonamides; J44.9 Chronic obstructive pulmonary disease, unspecified; G47.33 Obstructive sleep apnea (adult) (pediatric); I11.0 Hypertensive heart disease with heart failure; I50.9 Heart failure, unspecified; I25.10 Atherosclerotic heart disease of native coronary artery without angina pectoris; Z95.2 Presence of prosthetic heart valve; Z87.891 Personal history of nicotine dependence

== ENCOUNTER → 2024-06-09 | Outpatient (CLI) | payer MEDICARE ==
[~2024-06-09] MED LIST changes: +CARV6.25 PO; +CEFD1CAP9 PO; +DOXY100T PO; +ELIQ5TAB PO; +LISI40TA4 PO; +VITA100093 PO
== END ==
LOC: M RAD 12:16
PROVIDERS: ATTEND Physician Assistant
DX: I65.23 Occlusion and stenosis of bilateral carotid arteries (principal)